=== PATIENT | female | born 1995 | race Two or more races ===

== ENCOUNTER 2021-06-11 10:46 | Emergency (ER) | payer MEDICAID, OTHER ==
[~2021-06-11] VITALS: Ht 162.6 cm; Wt 79.8 kg
[2021-06-11] MEDS ORDERED: methylPREDNISolone SOD SUCC 125 MG/2 ML VL IM ONE (14:45)
[2021-06-11] MEDS ORDERED: cefTRIAXone SOD 1,000 MG VL IM ONE (14:45)
[2021-06-11 15:11] VITALS: BP 102/70
== END 2021-06-11 15:39 | disposition home or self-care (01) ==
LOC: EDBD 10:46 → ER 10:46
DX: J18.9 Pneumonia, unspecified organism (principal); Z20.822 Contact with and (suspected) exposure to COVID-19
CPT/HCPCS: 36415; 71046; 87426; 96372; 99284; J0696; J2930